=== PATIENT | female | born 1935 ===

== ENCOUNTER 2018-01-18 21:26 | Inpatient (IN) ==
[2018-01-18] MEDS ORDERED: ONDANSETRON 4 MG/2 ML VIAL IV PRN (22:17)
[2018-01-18] MEDS ORDERED: POLYVINYL ALCOHOL 1.4% OPH SOLN 15 ML BOTTLE BOTH EYES PRN (22:23)
[2018-01-18] MEDS ORDERED: LABETALOL 20 MG/4 ML SYRINGE IV PRN (22:26)
[2018-01-18] MEDS ORDERED: MORPHINE 4 MG/1 ML VIAL IV PRN (22:27)
[2018-01-18] MEDS: ALBUTEROL 1.25 MG/3 ML NEB RESP TX SCH (23:58)
[2018-01-19] MEDS: SODIUM CHLORIDE 0.9% 1,000 ML IV SCH ×2 (00:41→19:55)
[2018-01-19] MEDS ORDERED: ALBUTEROL/IPRATROPIUM 3 ML NEB RESP TX SCH (01:00)
[2018-01-19] MEDS: ALBUTEROL 1.25 MG/3 ML NEB RESP TX SCH ×6 (04:02→23:52)
[2018-01-19 06:20] LABS: Basophils % 0.2 % (0.0-0.8); Eosinophils % 0.1 % (0.00-10.9); Hematocrit 37.9 VOL% (35.7-47.0); Hemoglobin 13.1 GM/DL (12.0-16.0); Immature Granulocytes % 0.3 %; Immature Granulocytes Absolute 0.03 #; Lymphocytes # 0.5 10*3/uL (1.4-4.0); Lymphocytes % 5.1 % (21.3-54.2); Mean Corpuscular HGB Conc 34.6 GM/DL (32-36); Mean Corpuscular Hemoglobin 34 PG (27-34); Mean Corpuscular Volume 97.9 FL (87-102); Mean Platelet Volume 9.1 FL (9.6-12.0); Monocytes # 0.9 10*3/uL (0.11-0.8); Monocytes % 9.9 % (1.7-12.7); Neutrophils # 7.6 10*3/uL (1.4-7.4); Neutrophils % 84.4 % (38.7-73.9); Platelet Count 251 T/CUMM (130-400); Red Blood Count 3.87 MC/CUMM (3.8-5.5); Red Cell Distribution Width 15.9 % (9.3-17.3)
[2018-01-19 06:54] LABS: Albumin 3.5 G/DL (3.4-5.0); Osmolality,Calculated 284.5 MOS/KG (273-304); Potassium 4.1 MMOL/L (3.5-5.1); Total Protein 8.4 G/DL (6.4-8.3)
[2018-01-19] MEDS: PANTOPRAZOLE 40 MG VIAL IV SCH ×2 (09:32→21:57)
[2018-01-20] MEDS: ALBUTEROL 1.25 MG/3 ML NEB RESP TX SCH ×5 (03:13→19:27)
[2018-01-20] MEDS: PANTOPRAZOLE 40 MG VIAL IV SCH ×2 (09:36→20:41)
[2018-01-20] MEDS: SODIUM CHLORIDE 0.9% 1,000 ML IV SCH (15:35)
[2018-01-21] MEDS: ALBUTEROL 1.25 MG/3 ML NEB RESP TX SCH ×7 (00:42→23:11)
[2018-01-21 05:16] LABS: Basophils % 0.4 % (0.0-0.8); Eosinophils # 0.1 10*3/uL (0.0-0.87); Eosinophils % 0.9 % (0.00-10.9); Hematocrit 30.6 VOL% (35.7-47.0); Hemoglobin 11.3 GM/DL (12.0-16.0); Immature Granulocytes % 0.6 %; Immature Granulocytes Absolute 0.03 #; Lymphocytes # 0.7 10*3/uL (1.4-4.0); Lymphocytes % 12.2 % (21.3-54.2); Mean Corpuscular HGB Conc 36.9 GM/DL (32-36); Mean Corpuscular Hemoglobin 38 PG (27-34); Mean Corpuscular Volume 104.1 FL (87-102); Mean Platelet Volume 9.2 FL (9.6-12.0); Monocytes # 0.4 10*3/uL (0.11-0.8); Monocytes % 7.7 % (1.7-12.7); Neutrophils # 4.2 10*3/uL (1.4-7.4); Neutrophils % 78.2 % (38.7-73.9); Platelet Count 203 T/CUMM (130-400); Red Blood Count 2.94 MC/CUMM (3.8-5.5); Red Cell Distribution Width 15.8 % (9.3-17.3); White Blood Count 5.3 T/CUMM (4-12)
[2018-01-21 05:35] LABS: Calcium 8.1 MG/DL (8.5-10.1); Osmolality,Calculated 287.1 MOS/KG (273-304); Potassium 3.9 MMOL/L (3.5-5.1)
[2018-01-21] MEDS: PANTOPRAZOLE 40 MG VIAL IV SCH ×2 (09:35→21:44)
[2018-01-21] MEDS: SODIUM CHLORIDE 0.9% 1,000 ML IV SCH (17:02)
[2018-01-22] MEDS: ALBUTEROL 1.25 MG/3 ML NEB RESP TX SCH ×3 (04:35→11:25)
[2018-01-22 05:20] LABS: Basophils % 0.4 % (0.0-0.8); Eosinophils # 0.1 10*3/uL (0.0-0.87); Eosinophils % 2.4 % (0.00-10.9); Hematocrit 33.1 VOL% (35.7-47.0); Hemoglobin 10.5 GM/DL (12.0-16.0); Immature Granulocytes % 0.6 %; Immature Granulocytes Absolute 0.03 #; Lymphocytes # 0.7 10*3/uL (1.4-4.0); Mean Corpuscular HGB Conc 31.7 GM/DL (32-36); Mean Corpuscular Hemoglobin 31 PG (27-34); Mean Corpuscular Volume 96.5 FL (87-102); Mean Platelet Volume 8.9 FL (9.6-12.0); Monocytes # 0.6 10*3/uL (0.11-0.8); Monocytes % 12.1 % (1.7-12.7); Neutrophils # 3.4 10*3/uL (1.4-7.4); Neutrophils % 69.5 % (38.7-73.9); Platelet Count 179 T/CUMM (130-400); Red Blood Count 3.43 MC/CUMM (3.8-5.5); Red Cell Distribution Width 14.6 % (9.3-17.3); White Blood Count 4.9 T/CUMM (4-12)
[2018-01-22 05:54] LABS: Calcium 7.7 MG/DL (8.5-10.1); Osmolality,Calculated 279.4 MOS/KG (273-304); Potassium 3.3 MMOL/L (3.5-5.1)
[2018-01-22] MEDS: PANTOPRAZOLE 40 MG VIAL IV SCH (09:12)
[2018-01-22] MEDS ORDERED: POTASSIUM CHLORIDE 20 MEQ TABLET PO ONE (10:30)
[2018-01-22 11:51] VITALS: BP 157/70
== END 2018-01-22 13:57 | disposition swing bed (61) | DRG 388 ==
LOC: EDUNIT# → EDBD → N.ED 21:26 → N.EDINP 22:17 → N.2E 23:00
PROVIDERS: ADMIT Surgery; ATTEND Surgery

== ENCOUNTER 2018-03-01 05:51 | Inpatient (IN) ==
[2018-03-09 11:56] VITALS: BP 137/65
== END 2018-03-09 13:12 | disposition swing bed (61) | DRG 207 ==
LOC: EDUNIT# 05:51 → EDBD 05:51 → N.ED 05:51 → N.EDINP 07:25 → SUATTDRO 07:25 → N.CC 14:06 → N.TELES 03-07 19:03
PROVIDERS: ADMIT Internal Medicine; ATTEND Internal Medicine